=== PATIENT | male | born 1955 | race African-American/Black ===

== ENCOUNTER 2021-01-26 17:51 | Emergency (ER) | payer BC ==
[~2021-01-26] VITALS: Ht 170.2 cm; Wt 119.9 kg
[~2021-01-26 17:51] MED LIST: AVELOX400 MG PO; KEFLEX500 MG PO; MEDROL DOSPAK21 TA1 PO; PREDNISONE50 MG PO; PROAIR HFA8.5 GM IH; VENTOLIN HFA 1818 GM INH
[2021-01-26 18:23] LABS: ABSOLUTE EOSINOPHILS 0.5 thou/uL (0.0-0.7); ABSOLUTE LYMPHOCYTES 1.7 thou/uL (0.8-5.3); ABSOLUTE MONOCYTES 0.9 thou/uL (0.0-1.2); ABSOLUTE NEUTROPHILS 8.9 thou/uL (1.6-8.1); BASOPHILS 0.2 %; EOSINOPHILS 3.8 %; HEMATOCRIT 34.7 % (42.0-52.0); HEMOGLOBIN 11.2 gm/dL (14.0-18.0); LYMPHOCYTES 14.1 %; MCH 31.2 pg (26.0-34.0); MCHC 32.2 g/dL (28.0-37.0); MCV 96.8 fL (80.0-100.0); MONOCYTES 7.5 %; NUCLEATED RBCS 0 /100WBC; PLATELET COUNT* 397 thou/uL (150-400); POLYS 74.4 %; RBC 3.59 mil/uL (4.50-6.00); RDW-CV 14.2 % (10.5-14.5); WBC 11.9 thou/uL (4.0-11.0)
[2021-01-26 18:33] LABS: CALCIUM 8.6 mg/dL (8.5-10.1); CREATININE 1.4 mg/dL (0.6-1.3); POTASSIUM 4.3 mmol/L (3.5-5.1)
[2021-01-26 18:38] LABS: ALBUMIN 3.4 g/dL (3.4-5.0); TOTAL BILIRUBIN 0.1 mg/dL (<0.1-1.0); TOTAL PROTEIN 8.1 g/dL (6.4-8.2)
[2021-01-26] MEDS ORDERED: IPRAT-ALBUT 0.5-3 ML INH (21:07)
[2021-01-26] MEDS ORDERED: NEBULIZER MISCELL (21:07)
[2021-01-26] MEDS ORDERED: PROAIR HFA8.5 GM INH (21:07)
[2021-01-26] MEDS ORDERED: PREDNISONE 20 M20 M1 PO (21:07)
[2021-01-26 21:34] VITALS: BP 126/59
--- NOTE | 2021-01-27 12:33 | EKG ---
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
== END 2021-01-26 21:34 | disposition home or self-care (01) ==
LOC: M.ERS 17:51
PROVIDERS: Emergency Medicine
DX: J44.1 Chronic obstructive pulmonary disease with (acute) exacerbation (principal); Z20.822 Contact with and (suspected) exposure to COVID-19; Z87.891 Personal history of nicotine dependence; Z88.0 Allergy status to penicillin